=== PATIENT | male | born 1985 ===

== ENCOUNTER 2020-11-03 12:35 | Emergency (ER) | payer OTHER ==
[~2020-11-03] VITALS: Ht 167.6 cm; Wt 76.2 kg
[2020-11-03] MEDS ORDERED: ANALPRAM HC 2.530 GM RECTAL (13:17)
[2020-11-03] MEDS ORDERED: KETO10TA2 PO (13:17)
[2020-11-03] MEDS ORDERED: TYLENOL ARTHRI650 MG (15:11)
[2020-11-03] MEDS ORDERED: NASAL MIST126 ML (15:11)
== END 2020-11-03 13:31 | disposition home or self-care (01) ==
LOC: ER 12:35
DX: K64.8 Other hemorrhoids (principal)

== ENCOUNTER 2020-12-26 11:17 | Emergency (ER) | payer OTHER ==
[~2020-12-26] VITALS: Ht 167.6 cm; Wt 72.6 kg
[~2020-12-26 11:17] MED LIST: ANALPRAM HC 2.530 GM RECTAL; KETO10TA2 PO; NASAL MIST126 ML; TYLENOL ARTHRI650 MG
== END 2020-12-26 12:20 | disposition home or self-care (01) ==
LOC: ER 11:17
DX: M62.838 Other muscle spasm (principal)